=== PATIENT | female | born 1990 | race Caucasian/White ===

== ENCOUNTER → 2016-12-25 15:55 | Observation (INO) ==
[2016-12-25 14:08] LABS: Bilirubin,Urine Negative (Negative); Blood,Urine Large (Negative); Clarity,Urine Cloudy (Clear); Color,Urine Yellow (Yellow); Glucose,Urine (UA) Normal (Normal); Ketones,Urine Negative (Negative); Leukocyte Esterase,Urine Small (Negative); Nitrite,Urine Negative (Negative); Protein,Urine Negative (Neg-Trace); Specific Gravity,Urine 1.029 (1.010-1.025); Urobilinogen,Urine Normal (Normal)
[2016-12-25 14:09] LABS: Bacteria,Urine Few per hpf (None-Few); Hyaline Casts,Urine None Seen per lpf (None-Few); Squamous Epithelial Cell,Urine Many per lpf (None-Few)
[2016-12-25 14:25] LABS: RBC,Urine 30-50 per hpf (0-3)
--- NOTE | 2016-12-25 14:43 | OB/GYN Progress Note ---
Date of Encounter: 12/25/16 Time of Encounter: 14:40 - Assessment and Plan (1) 24 weeks gestation of Current Visit: Yes Status: Acute admitted for labor evaluation (2) UTI (urinary tract infection) in in second trimester Current Visit: Yes Status: Acute Will start Macrobid while awaiting urine culture results. Subjective - Subjective Principal diagnosis: lower abdominal and back pain Interval history: Patient is 26 y/o at 24w4d gestation presented to labor and delivery with c /o of low abdominal and back pain that started this morning and has gotten worse as the day progressed. Patient denies any dysuria or increase in frequency , denies LOF or VB. Denies intercourse in past 24 hours. Patient reports +FM. patient denies any complication with current and denies history of labor. Antepartum ROS: movement normal, no loss of fluid, no vaginal bleeding, no contractions Objective - Vital Signs Vital Signs: Intake and Output 12/24/16 12/25/16 12/25/16 23:59 07:59 15:59 Other: Weight 102.965 kg Patient Weight 12/25/16 23:59 Weight 102.965 kg - Exam FHR: auscultation normal, category 1 FHR comments: 140 bpm moderate variability + accels no decels noted. No contractions noted on the monitor or palpated. Auscultation: bilateral: normal Abdomen: Present: normal appearance, soft, gravid Uterus: Present: normal, firm Cervical dilation: Closed Cervix effacement: Thick station: -3 Comments: No CVA tenderness. Tender to palpation over bladder. Speculum exam: No signs of blood noted, white discharge noted. Cervix appears visually to be closed. - Labs Labs: Abnormal lab results Urine Clarity Cloudy (Clear) A 12/25/16 14:00 Ur Specific [place] 1.029 (1.010-1.025) H 12/25/16 14:00 Urine Blood Large (Negative) H 12/25/16 14:00 Ur Leukocyte Esterase Small (Negative) H 12/25/16 14:00 Urine Microscopic RBC 30-50 per hpf (0-3) H 12/25/16 14:00 Urine Microscopic WBC 5-15 per hpf (0-3) H 12/25/16 14:00 Ur Squamous Epith Cells Many per lpf (None-Few) H 12/25/16 14:00 Ur Culture Indicated? YES (NO) A 12/25/16 14:00
--- NOTE | 2016-12-25 15:47 | Discharge Summary ---
Date of Encounter: 12/25/16 Time of Encounter: 15:45 - Discharge Diagnosis (1) 24 weeks gestation of Priority: Primary Status: Acute (2) UTI (urinary tract infection) in in second trimester Priority: Secondary Status: Acute - Discharge Medications Prescriptions: Nitrofurantoin (BID) [Macrobid] 100 mg PO BID #14 capsule Home Medications: Vit Calc,Iron,Folic [ Vitamins] 1 each PO DAILY #30 tablet [Rx] Metoprolol Succinate/Hctz [Metoprolol ER-Hctz 25-12.5 mg] 12.5 mg PO DAILY 12/25 [History] Nitrofurantoin (BID) [Macrobid] 100 mg PO BID #14 capsule 12/25/16 [Rx] Allergies/Adverse Reactions: Allergies No Known Allergies Allergy (Verified 10/06/16 02:51) Data Procedures and tests throughout hospitalization: Laboratory Tests 12/25/16 14:00 Urine Color Yellow Urine Clarity Cloudy A Urine pH 6.0 Ur Specific [place] 1.029 H Urine Protein Negative Urine Glucose (UA) Normal Urine Ketones Negative Urine Blood Large H Urine Nitrite Negative Urine Bilirubin Negative Urine Urobilinogen Normal Ur Leukocyte Esterase Small H Urine Microscopic RBC 30-50 H Urine Microscopic WBC 5-15 H Ur Squamous Epith Cells Many H Urine Bacteria Few Hyaline Casts None Seen Ur Culture Indicated? YES A Labs on day of discharge: Labs from last 24 hours 12/25/16 14:00 Urine Color Yellow Urine Clarity Cloudy A Urine pH 6.0 Ur Specific [place] 1.029 H Urine Protein Negative Urine Glucose (UA) Normal Urine Ketones Negative Urine Blood Large H Urine Nitrite Negative Urine Bilirubin Negative Urine Urobilinogen Normal Ur Leukocyte Esterase Small H Urine Microscopic RBC 30-50 H Urine Microscopic WBC 5-15 H Ur Squamous Epith Cells Many H Urine Bacteria Few Hyaline Casts None Seen Ur Culture Indicated? YES A Date of admission: 12/25/16 13:42 Primary care physician: Ebony Aguirre, Discharging clinician: Sheila Person Anticipated date of discharge: 12/25/16 - Patient Status Disposition: Home, Self-Care Condition: Good Functional capacity at discharge: independent ambulation - Discharge Instructions Follow Up With: Ebony Aguirre CNP [Primary Care Provider] - Sam Laguna MD [Partnered Physician] - - Diet and Activity Activity: increase activity as tolerated Diet: regular diet Hospital Course ACCOUNTS RECEIVABLE COORDINATOR Time Attestation: Total time spent providing and/or coordinating discharge services: Time Spent: Less than 30 minutes - VTE Reasons for not Prescribing Prophylaxis: Treatment not Indicated - Low risk for VTE
[~2016-12-25 15:55] MED LIST: Nitrofurantoin (BID) 100 MG CAPSULE PO STA
== END | disposition home or self-care (01) ==
LOC: 1NENULAB

== ENCOUNTER → 2017-03-12 21:35 | Observation (INO) ==
--- NOTE | 2017-03-12 17:49 | OB/GYN Progress Note ---
Date of Encounter: 03/12/17 Time of Encounter: 17:44 - Assessment and Plan (1) Vaginal discharge Current Visit: Yes Status: Acute nitrizine vaginosis panel UA with reflex culture (2) contractions Current Visit: Yes Status: Acute betamethasone 03/12/- No change in uc's, cx getting stronger. Will watch for another or so. (3) 35 weeks gestation of Current Visit: Yes Status: Acute Subjective - Subjective Principal diagnosis: vaginal discharge Interval history: Sarah Dahl is a 26 yo female at 35.4 weeks gestation who presents complaining of vaginal discharge that began this morning. The discharge is watery in consistency and sometimes creamy white. She reports frequent contractions with associated abdominal and pelvic pain/pressure. Denies vaginal bleeding, blurred vision, headache, dizziness. Decreased movement from baseline today. Her has been complicated by pulmonary HTN for which she sees [facility] [place] [facility]. She is planned to deliver at [facility] via induction on 04/07/17. 03/12 19:38- Pt reports getting stronger q 7 min (q 3-5 on monitor), no vb, still with occ lof/ clear d/c with uc's. +GFM Antepartum ROS: loss of fluid Objective - Vital Signs Vital Signs: Intake and Output 03/12/17 03/12/17 03/12/17 07:59 15:59 23:59 Other: Weight 114.9 kg Patient Weight 03/12/17 23:59 Weight 114.9 kg - Exam FHR: auscultation normal, category 1 Auscultation: bilateral: normal Abdomen: Present: normal appearance, soft, gravid Uterus: Present: normal Comments: Gen: A&Ox3, well-developed, well-nourished Heart: RRR Extremities: trace-1+ pedal edema to knees bilateral, also edema of bilateral hands; capillary refill 2 seconds, warm, dorsalis pedis pulses 2/4 SSE- No pool, no fern and neg nitrazine.
[2017-03-12 18:03] LABS: Bilirubin,Urine Negative (Negative); Blood,Urine Negative (Negative); Clarity,Urine Cloudy (Clear); Color,Urine Yellow (Yellow); Glucose,Urine (UA) Normal (Normal); Ketones,Urine Negative (Negative); Leukocyte Esterase,Urine Moderate (Negative); Nitrite,Urine Negative (Negative); Protein,Urine Negative (Neg-Trace); Specific Gravity,Urine 1.027 (1.010-1.025); Urobilinogen,Urine Normal (Normal)
[2017-03-12 18:06] LABS: Bacteria,Urine Moderate per hpf (None-Few); Hyaline Casts,Urine None Seen per lpf (None-Few); Squamous Epithelial Cell,Urine Many per lpf (None-Few); WBC,Urine 15-30 per hpf (0-3)
[2017-03-12 18:16] LABS: Calcium Oxalate Crystals,Urine Present
[2017-03-12 18:51] LABS: Trichomonas DNA Not Detected (Not Detect)
[2017-03-12 18:52] LABS: Candida DNA Not Detected (Not Detect); Gardnerella DNA Not Detected (Not Detect)
[~2017-03-12 21:35] MED LIST changes: +Betamethasone Acet/SodPhos 6 MG/ML MDV IM SCH; -Nitrofurantoin (BID) 100 MG CAPSULE PO STA
== END | disposition home or self-care (01) ==
LOC: 1NENULAB
PROVIDERS: ADMIT Obstetrics & Gynecology; ATTEND Obstetrics & Gynecology

== ENCOUNTER 2021-04-02 11:15 | Inpatient (IN) ==
[2021-04-02] MEDS ORDERED: cefTRIAXone 2,000 MG in Water for inj. (sterile) 20 ML IVP ONE (11:42)
[2021-04-02] MEDS: 0.9 % Sodium Chloride 1,000 ML IVC SCH ×3 (11:49→14:48)
[2021-04-02 12:04] LABS: Basophils % 0.1 %; Hematocrit 38.4 % (35.3-44.9); Immature Granulocytes % 0.3 % (0-4); Lymphocytes # 0.2 K/mcL (0.6-4.6); Lymphocytes % 3.4 %; Mean Corpuscular HGB Conc 33.9 g/dL (31.6-35.5); Mean Corpuscular Hemoglobin 31.6 pg (28.0-33.3); Mean Corpuscular Volume 93.4 fL (83.0-100.0); Mean Platelet Volume 11.4 fL (9.4-12.4); Monocytes # 0.1 K/mcL (0.0-1.3); Monocytes % 1.7 %; Neutrophils # 6.6 K/mcL (1.6-8.9); Platelet Count 146 K/mcL (140-400); Red Blood Count 4.11 M/mcL (3.82-4.97); Red Cell Distribution Width 12.2 % (11.5-14.5); Segmented Neutrophils % 94.5 %
[2021-04-02 12:21] LABS: VBG HCO3 16 mEq/L (21-27); VBG PCO2 16 mmHg (41-51); VBG PO2 70 mmHg (25-50)
[2021-04-02 12:47] LABS: Adenovirus Not Detected (Not Detect); Bordetella Pertussis Not Detected (Not Detect); Chlamydophila pneumoniae Not Detected (Not Detect); Coronavirus 229E Not Detected (Not Detect); Coronavirus HKU1 Not Detected (Not Detect); Coronavirus NL63 Not Detected (Not Detect); Coronavirus OC43 Not Detected (Not Detect); Human Metapneumovirus Not Detected (Not Detect); Human Rhinovirus/Enterovirus Not Detected (Not Detect); Influenza A Subtype 2009 H1 Not Detected (Not Detect); Influenza B Not Detected (Not Detect); Mycoplasma pneumoniae Not Detected (Not Detect); Parainfluenza Virus 1 Not Detected (Not Detect); Parainfluenza Virus 2 Not Detected (Not Detect); Parainfluenza Virus 3 Not Detected (Not Detect); Parainfluenza Virus 4 Not Detected (Not Detect); Respiratory Syncytial Virus Not Detected (Not Detect); SARS-CoV-2 Not Detected (Not Detect)
[2021-04-02 12:53] LABS: INR 1.2; Prothrombin Time 13.4 Seconds (9.4-12.1)
[2021-04-02 12:56] LABS: Activated Partial Thrombo Time 28.2 Seconds (26.0-36.0)
[2021-04-02 13:44] LABS: Alanine Aminotransferase 35 Units/L (7-52); Albumin 4.2 g/dL (3.5-5.7); Albumin/Globulin Ratio 1.4 (1.1-2.2); Alkaline Phosphatase 62 Units/L (34-104); Aspartate Amino Transferase 14 Units/L (13-39); BUN/Creatinine Ratio 14 (6-26); Bilirubin,Direct 0.2 mg/dL (0.0-0.2); Bilirubin,Indirect 0.5 mg/dL (0.0-1.0); Bilirubin,Total 0.7 mg/dL (0.3-1.0); Blood Urea Nitrogen 14 mg/dL (6-20); Calcium 9.3 mg/dL (8.6-10.3); Carbon Dioxide 18 mEq/L (23-29); Chloride 105 mEq/L (98-107); Globulin 2.9 g/dL (2.4-3.5); Glucose 131 mg/dL (70-105); Lipase 14 Units/L (11-82); Magnesium 1.6 mg/dL (1.6-2.6); Osmolality,Calculated 284 (280-300); Phosphorous < 1.0 mg/dL (2.7-4.5); Potassium 3.6 mEq/L (3.5-5.1); Sodium 136 mEq/L (136-145); Thyroid Stimulating Hormone 1.302 mcIU/mL (0.340-5.600); Total Protein 7.1 g/dL (6.4-8.9); Troponin I < 0.03 ng/mL (< 0.04); eGFR For African Americans > 60 (> 60); eGFR For Non-African Americans > 60 (> 60)
[2021-04-02] MEDS ORDERED: Isovue-370 500 ML BOTTLE IVP ONE (13:48)
[2021-04-02] MEDS ORDERED: Morphine Sulfate 2 MG/ML SYRINGE IVP ONE (14:19)
[2021-04-02 14:28] LABS: Bacteria,Urine Few per hpf (None-Few); Bilirubin,Urine Negative (Negative); Blood,Urine Small (Negative); Clarity,Urine Turbid (Clear); Color,Urine Yellow (Yellow); Glucose,Urine (UA) Normal (Normal); Ketones,Urine Negative (Negative); Leukocyte Esterase,Urine Moderate (Negative); Mucus,Urine Few per lpf (None-Few); Nitrite,Urine Negative (Negative); Protein,Urine 50 mg/dL (Neg-Trace); Specific Gravity,Urine > 1.030 (1.010-1.025); Squamous Epithelial Cell,Urine Many per hpf (None-Few); WBC,Urine 30-50 per hpf (0-3)
[2021-04-02] MEDS ORDERED: Naloxone 0.4 MG/ML INJ IVP PRN (18:21)
[2021-04-02] MEDS: Acetaminophen 325 MG TABLET PO PRN (20:32)
[2021-04-02] MEDS: Micafungin 100 MG in 0.9 % Sodium Chloride Mini Bag 100 ML IVPB SCH (20:33)
[2021-04-02] MEDS: Cefepime HCl 2,000 MG in Water for inj. (sterile) 20 ML IVP SCH (23:17)
[2021-04-03 01:10] LABS: Acinetobacter baumannii by PCR Not Detected (Not Detect); Candida albicans by PCR Not Detected (Not Detect); Candida glabrata by PCR Not Detected (Not Detect); Candida krusei by PCR Not Detected (Not Detect); Candida parapsilosis by PCR Not Detected (Not Detect); Candida tropicalis by PCR Not Detected (Not Detect); Enterobacter cloacae Cmplx PCR Not Detected (Not Detect); Enterococcus by PCR Not Detected (Not Detect); Escherichia coli by PCR Not Detected (Not Detect); Klebsiella oxytoca by PCR DETECTED (Not Detect); Klebsiella pneumoniae by PCR Not Detected (Not Detect); Proteus by PCR Not Detected (Not Detect); Pseudomonas aeruginosa by PCR Not Detected (Not Detect); Serratia marcescens by PCR Not Detected (Not Detect); Staphylococcus aureus by PCR Not Detected (Not Detect); Staphylococcus by PCR Not Detected (Not Detect); Streptococcus agalactiae(B)PCR Not Detected (Not Detect); Streptococcus by PCR Not Detected (Not Detect); Streptococcus pneumoniae PCR Not Detected (Not Detect); Streptococcus pyogenes (A) PCR Not Detected (Not Detect)
[2021-04-03 05:58] LABS: White Blood Count 4.7 K/mcL (4.3-11.1)
[2021-04-03 05:59] LABS: Hematocrit 32.3 % (35.3-44.9); Immature Granulocytes % 0.4 % (0-4); Lymphocytes # 0.6 K/mcL (0.6-4.6); Lymphocytes % 12.9 %; Mean Corpuscular HGB Conc 33.7 g/dL (31.6-35.5); Mean Corpuscular Hemoglobin 32.2 pg (28.0-33.3); Mean Corpuscular Volume 95.3 fL (83.0-100.0); Mean Platelet Volume 11.8 fL (9.4-12.4); Monocytes # 0.2 K/mcL (0.0-1.3); Monocytes % 5.1 %; Platelet Count 111 K/mcL (140-400); Red Blood Count 3.39 M/mcL (3.82-4.97); Red Cell Distribution Width 12.6 % (11.5-14.5); Segmented Neutrophils % 81.6 %
[2021-04-03 06:02] LABS: Hemoglobin 10.9 g/dL (11.5-15.4); Neutrophils # 3.8 K/mcL (1.6-8.9)
[2021-04-03 06:18] LABS: BUN/Creatinine Ratio 9 (6-26); Blood Urea Nitrogen 8 mg/dL (6-20); Calcium 8.3 mg/dL (8.6-10.3); Carbon Dioxide 22 mEq/L (23-29); Chloride 112 mEq/L (98-107); Glucose 107 mg/dL (70-105); Osmolality,Calculated 287 (280-300); Potassium 3.9 mEq/L (3.5-5.1); Sodium 139 mEq/L (136-145); eGFR For African Americans > 60 (> 60); eGFR For Non-African Americans > 60 (> 60)
[2021-04-03 06:19] LABS: Platelet Estimate Slight Decrease (Normal)
[2021-04-03] MEDS: Cefepime HCl 2,000 MG in Water for inj. (sterile) 20 ML IVP SCH ×3 (09:24→23:43)
[2021-04-03] MEDS: Micafungin 100 MG in 0.9 % Sodium Chloride Mini Bag 100 ML IVPB SCH (09:24)
[2021-04-03] MEDS ORDERED: Ondansetron ODT 4 MG TAB.RAPDIS PO PRN (09:47)
[2021-04-03] MEDS: Famotidine 20 MG TABLET PO SCH ×2 (10:46→21:28)
[2021-04-03] MEDS: Venlafaxine XR (24 HR) 75 MG CAP.ER.24H PO SCH (10:47)
[2021-04-03] MEDS: Ondansetron ODT 4 MG TAB.RAPDIS SL PRN ×2 (10:47→21:27)
[2021-04-03] MEDS: Acetaminophen 325 MG TABLET PO PRN (14:07)
[2021-04-04 04:48] LABS: Hematocrit 34.6 % (35.3-44.9); Hemoglobin 11.7 g/dL (11.5-15.4); Mean Corpuscular HGB Conc 33.8 g/dL (31.6-35.5); Mean Corpuscular Hemoglobin 32.3 pg (28.0-33.3); Mean Corpuscular Volume 95.6 fL (83.0-100.0); Mean Platelet Volume 11.8 fL (9.4-12.4); Platelet Count 101 K/mcL (140-400); Red Blood Count 3.62 M/mcL (3.82-4.97); Red Cell Distribution Width 13.1 % (11.5-14.5); White Blood Count 3.8 K/mcL (4.3-11.1)
[2021-04-04] MEDS: *HR* Enoxaparin 40 MG/0.4 ML SYRINGE SQ SCH (05:08)
[2021-04-04 05:09] LABS: BUN/Creatinine Ratio 11 (6-26); Blood Urea Nitrogen 10 mg/dL (6-20); Calcium 8.6 mg/dL (8.6-10.3); Carbon Dioxide 24 mEq/L (23-29); Chloride 112 mEq/L (98-107); Glucose 85 mg/dL (70-105); Osmolality,Calculated 290 (280-300); Sodium 141 mEq/L (136-145); eGFR For African Americans > 60 (> 60); eGFR For Non-African Americans > 60 (> 60)
[2021-04-04] MEDS: Micafungin 100 MG in 0.9 % Sodium Chloride Mini Bag 100 ML IVPB SCH (07:40)
[2021-04-04] MEDS: Famotidine 20 MG TABLET PO SCH ×2 (07:40→21:34)
[2021-04-04] MEDS: Venlafaxine XR (24 HR) 75 MG CAP.ER.24H PO SCH (07:40)
[2021-04-04] MEDS: Cefepime HCl 2,000 MG in Water for inj. (sterile) 20 ML IVP SCH (07:41)
[2021-04-04] MEDS ORDERED: Lidocaine -MPF 1% 5 ML AMPUL INFILT ONE (09:32)
[2021-04-04] MEDS ORDERED: CefTRIAXone 2,000 MG VIAL ONE (10:37)
[2021-04-04] MEDS: cefTRIAXone 2,000 MG in 0.9 % Sodium Chloride Mini Bag 100 ML IVPB SCH (10:41)
[2021-04-04] MEDS: Ondansetron ODT 4 MG TAB.RAPDIS SL PRN (13:53)
[2021-04-05] MEDS: *HR* Enoxaparin 40 MG/0.4 ML SYRINGE SQ SCH (04:52)
[2021-04-05 06:52] VITALS: BP 127/87; PULSE 83; TEMP 97.8; O2SAT 99
[2021-04-05] MEDS: Famotidine 20 MG TABLET PO SCH (07:23)
[2021-04-05] MEDS: Venlafaxine XR (24 HR) 75 MG CAP.ER.24H PO SCH (07:23)
[2021-04-05] MEDS: cefTRIAXone 2,000 MG in 0.9 % Sodium Chloride Mini Bag 100 ML IVPB SCH (07:24)
[2021-04-05] MEDS: Acetaminophen 325 MG TABLET PO PRN (07:33)
[2021-04-05] MEDS: Ondansetron ODT 4 MG TAB.RAPDIS SL PRN (07:44)
== END 2021-04-05 17:36 | disposition home health service (06) | DRG 314 ==
LOC: EMEROOARM 11:15 → 3ANU 11:15 → SUATTDRO 20:47 → 3ANU 21:26 → 3BNU 04-04 22:03
PROVIDERS: ADMIT Internal Medicine; ATTEND Student in an Organized Health Care Education/Training Program